=== PATIENT | male | born 1965 | race Two or more races ===

== ENCOUNTER 2023-05-24 22:06 | Emergency (ER) | payer SELFPAY ==
[~2023-05-24] VITALS: Ht 165.1 cm; Wt 64.0 kg
[2023-05-24 23:36] VITALS: BP 135/74; PULSE 79; RESP 16; TEMP 98.3
[2023-05-24] MEDS ORDERED: AMOX500C2 PO (23:42)
[2023-05-24] MEDS ORDERED: IBUP-1493 PO (23:42)
[2023-05-24] MEDS ORDERED: IBUPROFEN 800 MG TABLET PO ONE (23:45)
[2023-05-24] MEDS ORDERED: HYDROCODONE/ACETAMINOPHEN 5-325 MG TABLET PO ONE (23:45)
[2023-05-24] MEDS ORDERED: AMOXICILLIN TRIHYDRATE 250 MG CAPSULE PO ONE (23:45)
== END 2023-05-24 23:40 | disposition home or self-care (01) ==
LOC: EMS 22:06
DX: K02.9 Dental caries, unspecified (principal)
CPT/HCPCS: 99284; Z7502; Z7610